=== PATIENT | female | born 1955 | race Asian ===

== ENCOUNTER 2016-03-20 23:16 | Emergency (ER) | payer BC ==
[~2016-03-20] VITALS: Ht 165.1 cm; Wt 64.0 kg
[2016-03-20 23:19] VITALS: BP 160/86; PULSE 62; RESP 14; TEMP 97.7; O2SAT 99
[2016-03-20] MEDS ORDERED: SODIUM CHLORIDE 0.9% FLUSH 5 ML FLUSH IVF PRN (23:45)
[2016-03-20] MEDS ORDERED: ASPIRIN 81 MG CHEW TAB PO ONE (23:45)
[2016-03-20 23:47] VITALS: RESP 20; O2SAT 99
[2016-03-20] MEDS: NITROGLYCERIN 0.4 MG SL 25 TABS/BTL SL SCH ×2 (23:50→23:55)
--- NOTE | 2016-03-20 23:53 | PD ---
HPI Chief Complaint: Chest Pain Time Seen by Provider: 23:28 Travel History International Travel<30 days: No Contact w/Intl Traveler<30days: No Traveled to known affect area: No History of Present Illness HPI Healthy 60-year-old female here with complaint of chest pain. At approximately 5 PM this evening patient developed left-sided chest pain. This radiates slightly down into the left arm with an associated "heaviness" within the left arm. Patient denies any numbness or tingling. She feels slightly short of breath. No nausea vomiting, lightheadedness. She denies any history of cardiopulmonary disease. She has not taken anything at home for the pain. Pain is currently moderate at this time. She has never had any provocative testing. [facility]LY [facility] Past Medical History Medical History: Denies Significant Hx : 1 Para: 1 Past Surgical History Abdominal Surgery: Yes (EXPLORATORY) Section: Yes (X1) Social History Alcohol Use: No Tobacco Use: No Substance Use: No Allergies-Medications (Allergen,Severity, Reaction): Coded Allergies: No Known Allergies (Unverified , 03/20/16) Reported Meds & Prescriptions Reported Meds & Active Scripts Active No Active Prescriptions or Reported Medications Review of Systems Except as stated in HPI: all other systems reviewed are Neg Physical Exam Narrative GENERAL: Well-appearing female in no acute distress SKIN: Warm and dry. HEAD: Normocephalic. EYES: No scleral icterus. No injection or drainage. ENT: Mucous membranes pink and moist. NECK: Supple CARDIOVASCULAR: Regular rate and rhythm. No murmur appreciated. No reproducible tenderness to palpation of the chest RESPIRATORY: No accessory muscle use. Clear to auscultation. Breath sounds equal bilaterally. GASTROINTESTINAL: Abdomen soft, non-tender, nondistended. MUSCULOSKELETAL: No edema. NEUROLOGICAL: Awake and alert. Normal speech. PSYCHIATRIC: Appropriate mood and affect; insight and judgment normal. Data Data Last Documented VS Vital Signs Date Time Temp Pulse Resp B/P Pulse Ox O2 Delivery O2 Flow Rate FiO2 03/21/16 01:16 98 03/21/16 01:00 55 20 126/77 Room Air 03/20/16 23:19 97.7 Orders Electrocardiogram (03/20/16 23:31) Basic Metabolic Panel (Bmp) (03/20/16 23:31) Ckmb (Isoenzyme) Profile (03/20/16 23:31) Complete Blood Count With Diff (03/20/16 23:31) Magnesium (Mg) (03/20/16 23:31) Prothrombin Time / Inr (Pt) (03/20/16 23:31) Act Partial Throm Time (Ptt) (03/20/16 23:31) Troponin I (03/20/16 23:31) Chest, Single Ap (03/20/16 23:31) Ecg Monitoring (03/20/16 23:31) Bilateral Bp Monitoring (03/20/16 23:31) Iv Access Insert/Monitor (03/20/16 23:31) Oximetry (03/20/16 23:31) Aspirin Chew (Aspirin Chew) (03/20/16 23:45) Sodium Chloride 0.9% Flush (Ns Flush) (03/20/16 23:45) Nitroglycerin Sl (Nitrostat Sl) (03/20/16 23:45) CKMB (03/21/16 00:00) CKMB% (03/21/16 00:00) Admit Order (Ed Use Only) (03/21/16 01:11) Activity Bed Rest With Brp (03/21/16 01:11) Vital Signs (Adult) Q4H (03/21/16 01:11) Cardiac Rhythm .As Directed (03/21/16 01:11) ^ Notify Dr: Other .PRN (03/21/16 01:11) ^ Notify Parameters (03/21/16 01:11) Resp Oxygen Nasal Cannula (03/21/16 ) Diet Npo (03/21/16 Breakfast) Ckmb (Isoenzyme) Profile (03/21/16 03:00) Ckmb (Isoenzyme) Profile (03/21/16 06:00) Troponin I (03/21/16 03:00) Troponin I (03/21/16 06:00) Electrocardiogram (03/21/16 03:00) Electrocardiogram (03/21/16 06:00) ^ Obtain (03/21/16 01:11) Sodium Chloride 0.9% Flush (Ns Flush) (03/21/16 01:15) Sodium Chloride 0.9% Flush (Ns Flush) (03/21/16 09:00) Nitroglycerin Sl (Nitrostat Sl) (03/21/16 01:15) Inspection Clerk / Telemetry [email or web address].[email or web address] (03/21/16 01:11) Labs Laboratory Tests Test 03/21/16 00:00 White Blood Count 4.2 TH/MM3 Red Blood Count 5.22 MIL/MM3 Hemoglobin 12.1 GM/DL Hematocrit 36.6 % Mean Corpuscular Volume 70.1 FL Mean Corpuscular Hemoglobin 23.3 PG Mean Corpuscular Hemoglobin 33.2 % Concent Red Cell Distribution Width 14.6 % Platelet Count 182 TH/MM3 Mean Platelet Volume 8.4 FL Neutrophils (%) (Auto) 41.4 % Lymphocytes (%) (Auto) 43.8 % Monocytes (%) (Auto) 8.4 % Eosinophils (%) (Auto) 4.4 % Basophils (%) (Auto) 2.0 % Neutrophils # (Auto) 1.7 TH/MM3 Lymphocytes # (Auto) 1.8 TH/MM3 Monocytes # (Auto) 0.3 TH/MM3 Eosinophils # (Auto) 0.2 TH/MM3 Basophils # (Auto) 0.1 TH/MM3 CBC Comment AUTO DIFF Differential Comment AUTO DIFF CONFIRMED Platelet Estimate NORMAL Platelet Morphology Comment NORMAL Prothrombin Time 10.7 SEC Prothromb Time International 1.0 RATIO Ratio Activated Partial 26.8 SEC Thromboplast Time Sodium Level 143 MEQ/L Potassium Level 3.6 MEQ/L Chloride Level 106 MEQ/L Carbon Dioxide Level 31.1 MEQ/L Anion Gap 6 MEQ/L Blood Urea Nitrogen 16 MG/DL Creatinine 0.84 MG/DL Estimat Glomerular Filtration 69 ML/MIN Rate Random Glucose 95 MG/DL Calcium Level 8.4 MG/DL Magnesium Level 2.4 MG/DL Total Creatine Kinase 136 U/L Creatine Kinase MB 1.0 NG/ML Troponin I LESS THAN 0.02 NG/ML MDM Medical Decision Making Medical Screen Exam Complete: Yes Emergency Medical Condition: Yes Medical Record Reviewed: Yes Differential Diagnosis Healthy 60-year-old female here with left-sided chest pressure radiating down with heaviness in the left arm since 5 PM. Differential includes ACS, atypical chest pain, musculoskeletal, and less likely PE or dissection. Narrative Course Patient placed on monitor, IV established and blood obtained. A twelve-lead EKG shows sinus rhythm. Patient has T-wave inversions in V1 and V2 with Q waves suspicious for previous septal infarct. No new ischemic changes, normal intervals. Patient was given aspirin, nitroglycerin. Portable chest x-ray was obtained that by my read shows no acute abnormalities. CBC, BMP, magnesium, CK- MB, troponin, coags were obtained and unremarkable. Given patient's age, I would prefer to have her admitted for serial enzymes, EKG and provocative testing. Long discussion was had with patient and her and ultimately, despite knowing risks and benefits, she wants to sign out AGAINST MEDICAL ADVICE and go home. AMA: The risks of leaving against medical advice without further evaluation treatment were discussed with the patient. These risks include cardiac dysfunction, cardiac dysrhythmia, possible heart attack, possible stroke or . The patient indicated understanding of these risks and appeared to have the capacity to make this decision. Diagnosis Primary Impression: Chest pain Qualified Code: R07.2 - Precordial pain Referrals: Primary Care Physician 2 days Additional Instructions: Return to the emergency department for the warning signs discussed. Follow with PCP for outpatient stress testing as discussed. Med/Other Pt SpecificInfo: No Change to Meds Scripts No Active Prescriptions or Reported Meds Disposition: 01 DISCHARGE HOME Condition: Stable Haydee Real MD Mar 20, 2016 23:53
[2016-03-21 00:14] LABS: AUTOMATED NEUTROPHIL # 1.7 TH/MM3 (1.8-7.7); BASOPHIL # 0.1 TH/MM3 (0-0.2); EOSINOPHIL # 0.2 TH/MM3 (0-0.4); EOSINOPHIL % 4.4 % (0.0-4.0); HEMATOCRIT 36.6 % (35.0-46.0); LYMPH % 43.8 % (9.0-44.0); LYMPHOCYTE # 1.8 TH/MM3 (1.0-4.8); MEAN CELL VOLUME 70.1 FL (80.0-100.0); MEAN CORPUSCULAR HEMOGLOBIN 23.3 PG (27.0-34.0); MEAN CORPUSCULAR HGB CONC 33.2 % (32.0-36.0); MONO % 8.4 % (0.0-8.0); NEUT % 41.4 % (16.0-70.0); PLATELET COUNT 182 TH/MM3 (150-450); RED BLOOD COUNT 5.22 MIL/MM3 (4.00-5.30); RED CELL DISTRIBUTION WIDTH 14.6 % (11.6-17.2); WHITE BLOOD COUNT 4.2 TH/MM3 (4.0-11.0)
[2016-03-21 00:19] LABS: HEMO FLAGS AUTO DIFF
[2016-03-21 00:21] VITALS: BP 146/79; PULSE 64; RESP 20; O2SAT 99
[2016-03-21 00:23] LABS: APTT (PATIENT) 26.8 SEC (24.3-30.1); PROTHROMBIN TIME - PATIENT 10.7 SEC (9.8-11.6)
[2016-03-21] MEDS: NITROGLYCERIN 0.4 MG SL 25 TABS/BTL SL SCH (00:26)
[2016-03-21 00:33] VITALS: BP 122/72; PULSE 63; RESP 20; O2SAT 97
[2016-03-21 00:52] LABS: ANION GAP 6 MEQ/L (5-15); BICARBONATE 31.1 MEQ/L (21.0-32.0); BLOOD UREA NITROGEN 16 MG/DL (7-18); CHLORIDE 106 MEQ/L (98-107); GLOMERULAR FILTRATION RATE 69 ML/MIN (>89); MAGNESIUM 2.4 MG/DL (1.5-2.5); POTASSIUM 3.6 MEQ/L (3.5-5.1); SODIUM (NA) 143 MEQ/L (136-145)
[2016-03-21 00:55] LABS: CREATINE KINASE 136 U/L (26-192); PLATELET ESTIMATE SMEAR NORMAL (NORMAL); PLATELET MORPHOLOGY NORMAL (NORMAL); SCAN/DIFF AUTO DIFF CONFIRMED
[2016-03-21 01:00] VITALS: BP 126/77; PULSE 55; RESP 20; O2SAT 98
[2016-03-21] MEDS ORDERED: NITROGLYCERIN 0.4 MG SL 25 TABS/BTL SL PRN (01:15)
[2016-03-21] MEDS ORDERED: SODIUM CHLORIDE 0.9% FLUSH 5 ML FLUSH IVF PRN (01:15)
[2016-03-21 01:16] VITALS: O2SAT 98
--- NOTE | 2016-03-21 08:04 | RADRPT ---
EXAM DATE/TIME: 03/20/2016 23:45 [facility] COMPARISON: No previous studies available for comparison. INDICATIONS : Chest pains with left arm weakness, and general body weakness x 3 days. MEDICAL HISTORY : None. SURGICAL HISTORY : None. ENCOUNTER: Initial ACUITY: 3 days PAIN SCORE: 6/10 LOCATION: Left chest FINDINGS: Portable AP view of the chest demonstrates a normal-sized cardiac silhouette. There is mild hazy opac ity in the lower lung zones bilaterally. No definite effusion or pneumothorax is visualized. The bone s and soft tissues demonstrate no acute finding. CONCLUSION: Mild hazy opacity in the lower lung zones bilaterally could represent an interstitial process or coul d be projectional/artifact. Pulmonary edema is one consideration. No other acute finding is identifie d. Sarthak Covarrubias MD on March 20, 2016 at 23:47 Board Certified Radiologist. This report was verified electronically.
[2016-03-21] MEDS ORDERED: SODIUM CHLORIDE 0.9% FLUSH 5 ML FLUSH IVF SCH (09:00)
--- NOTE | 2016-03-21 11:53 | EKG ---
Date Performed: 03/20/2016 Time Performed: 23:36:47 PTAGE: 60 years EKG: Sinus rhythm POSSIBLE RIGHT VENTRICULAR CONDUCTION DELAY SEPTAL MYOCARDIAL INFARCTION ABNORMAL ECG NO PREVIOUS TRACING DOCTOR: Ekaterina Becker Interpretating Date/Time 03/21/2016 11:52:03
== END 2016-03-21 01:58 | disposition left against medical advice (07) ==
LOC: NEPE 23:16
DX: R07.2 Precordial pain (principal); R94.31 Abnormal electrocardiogram [ECG] [EKG]
CPT/HCPCS: 71010; 80048; 82550; 82552; 83735; 84484; 85025; 85610; 85730; 93005